=== PATIENT | male | born 1945 | race Caucasian/White ===

== ENCOUNTER → 2019-03-02 07:45 | Outpatient (CLI) | payer MEDICARE, SELFPAY ==
[2019-03-02 15:06] LABS: Thyroid Stimulating Hormone 1.81 uIU/ml (0.358-3.740); Uric Acid 6.4 mg/dL (2.6-7.2)
[2019-03-03 16:08] LABS: Parathyroid Hormone Intact 20 pg/mL (15-65)
== END ==
PROVIDERS: PCP Nurse Practitioner Family; Visit Provider Internal Medicine Nephrology
DX: I10 Essential (primary) hypertension (principal); N18.4 Chronic kidney disease, stage 4 (severe); E55.9 Vitamin D deficiency, unspecified
CPT/HCPCS: 36415; 82652; 83970; 84443; 84550

== ENCOUNTER → 2019-06-14 07:41 | Outpatient (CLI) | payer MEDICARE, SELFPAY ==
[2019-06-14 07:46] LABS: Microscopic, Urine URINE MICROSCOPIC (MICROSCOPIC)
[2019-06-14 14:36] LABS: Appearance,Urine CLEAR (Clear); Bilirubin,Urine Negative (Negative); Blood, Urine Negative (Negative); Color,Urine YELLOW (Yellow); Glucose,Urine (UA) Negative (Negative); Ketones,Urine Negative (Negative); Leukocyte Esterase,Urine Negative (Negative); Nitrate,Urine Negative (Negative); Protein,Urine Negative (Negative); Specific Gravity, Urine <= 1.005 (1.005-1.030); Urobilinogen,Urine 0.2 EU/dl (0.2)
[2019-06-14 15:20] LABS: Albumin Level 3.5 gm/dL (3.4-5.0); Blood Urea Nitrogen 23 mg/dL (7-18); Calcium 8.6 mg/dL (8.5-10.1); Carbon Dioxide 28 mmol/L (21.0-32.0); Chloride 100 mmol/L (98-107); Creatinine,Serum 1.77 mg/dL (0.70-1.30); Estimated Glomerular Filt Rate 38 ml/min (>60); GFR (African American) 46 ML/MIN (>60); Glucose 100 mg/dL (74-106); Phosphorous 3.4 mg/dL (2.4-4.9); Sodium 137 mmol/L (136-145); Thyroid Stimulating Hormone 2.57 uIU/ml (0.358-3.740); Uric Acid 6.4 mg/dL (2.6-7.2)
[2019-06-14 15:43] LABS: Bacteria,Urine Trace /lpf; Squamous Epithelial Cell,Urine Occasional #/hpf (0-5); WBC,Urine Occasional #/hpf (0-3)
[2019-06-16 14:19] LABS: Parathyroid Hormone Intact 40 pg/mL (15-65); Vitamin D 25 Hydroxy 39.5 ng/mL (30.0-100.0)
== END ==
PROVIDERS: PCP Nurse Practitioner Family; Visit Provider Internal Medicine Nephrology
DX: I12.9 Hypertensive chronic kidney disease with stage 1 through stage 4 chronic kidney disease, or unspecified chronic kidney disease (principal); N18.3 Chronic kidney disease, stage 3 (moderate); E55.9 Vitamin D deficiency, unspecified
CPT/HCPCS: 36415; 80069; 81001; 82652; 83970; 84443; 84550

== ENCOUNTER → 2019-08-03 09:02 | Outpatient (CLI) | payer MEDICARE, SELFPAY ==
[2019-08-03 09:18] LABS: Microscopic, Urine URINE MICROSCOPIC (MICROSCOPIC)
[2019-08-03 13:35] LABS: Basophils # 0.1 K/mm3 (0-0.2); Basophils % 0.6 % (0.1-2.0); Eosinophils # 0.7 K/mm3 (0.0-0.4); Eosinophils % 7.5 % (0.1-12.0); Hematocrit 33.5 % (42.0-52.0); Hemoglobin 10.9 g/dL (14.1-18.0); Lymphocytes # 1.7 K/mm3 (0.7-4.5); Lymphocytes % 18.5 % (10-50); Mean Corpuscular HGB Conc 32.6 g/dL (31.8-35.4); Mean Corpuscular Hemoglobin 28.4 pg (27.0-31.2); Mean Corpuscular Volume 87.2 fl (80-94); Mean Platelet Volume 6.9 fl (7.4-10.4); Monocytes # 0.8 K/mm3 (0.1-1.0); Monocytes % 8.5 % (1.7-9.3); Neutrophils # 5.9 K/mm3 (1.8-7.8); Neutrophils % 64.9 % (37.0-80.0); Platelet Count 254 K/mm3 (142-424); Red Blood Count 3.85 M/mm3 (4.60-6.20); Red Cell Distribution Width 13.5 % (11.5-17.5); White Blood Count 9.2 K/mm3 (4.8-10.8)
[2019-08-03 13:43] LABS: Appearance,Urine CLEAR (Clear); Bilirubin,Urine Negative (Negative); Blood, Urine Negative (Negative); Color,Urine YELLOW (Yellow); Creatinine,Urine Random 17 mg/dL (20-320); Glucose,Urine (UA) Negative (Negative); Ketones,Urine Negative (Negative); Leukocyte Esterase,Urine Negative (Negative); Nitrate,Urine Negative (Negative); PH,Urine 6.5 (5.0-8.5); Protein,Urine Negative (Negative); Specific Gravity, Urine <= 1.005 (1.005-1.030); Total Protein,Urine Random 18.5 mg/dL (0.0-11.9); Urobilinogen,Urine 0.2 EU/dl (0.2)
[2019-08-03 14:02] LABS: Squamous Epithelial Cell,Urine Occasional #/hpf (0-5); WBC,Urine Occasional #/hpf (0-3)
[2019-08-03 14:18] LABS: Albumin Level 2.7 gm/dL (3.4-5.0); Blood Urea Nitrogen 37 mg/dL (7-18); Carbon Dioxide 27 mmol/L (21.0-32.0); Chloride 97 mmol/L (98-107); Creatinine,Serum 2.47 mg/dL (0.70-1.30); Estimated Glomerular Filt Rate 26 ml/min (>60); GFR (African American) 31 ML/MIN (>60); Glucose 169 mg/dL (74-106); Phosphorous 3.7 mg/dL (2.4-4.9); Sodium 136 mmol/L (136-145); Thyroid Stimulating Hormone 2.13 uIU/ml (0.358-3.740); Uric Acid 6.4 mg/dL (2.6-7.2)
[2019-08-05 06:13] LABS: Parathyroid Hormone Intact 27 pg/mL (15-65); Vitamin D 25 Hydroxy 42.6 ng/mL (30.0-100.0)
== END ==
PROVIDERS: PCP Nurse Practitioner Family; Visit Provider Internal Medicine Nephrology
DX: N18.3 Chronic kidney disease, stage 3 (moderate); N18.4 Chronic kidney disease, stage 4 (severe); E55.9 Vitamin D deficiency, unspecified; I12.9 Hypertensive chronic kidney disease with stage 1 through stage 4 chronic kidney disease, or unspecified chronic kidney disease; Z79.899 Other long term (current) drug therapy
CPT/HCPCS: 36415; 80069; 81001; 82570; 82652; 83970; 84155; 84443; 84550; 85025

== ENCOUNTER → 2019-09-27 09:32 | Outpatient (CLI) | payer MEDICARE, SELFPAY ==
[2019-09-27 13:39] LABS: Uric Acid 10.2 mg/dL (2.6-7.2)
[2019-09-27 13:44] LABS: Creatinine,Urine Random 36 mg/dL (20-320); Total Protein,Urine Random 61.2 mg/dL (0.0-11.9); Urea Nitrogen,Urine Random 474 (6.0-17.0)
[2019-09-28 09:21] LABS: Vitamin D 25 Hydroxy 58.3 ng/mL (30.0-100.0)
[2019-09-28 19:11] LABS: Parathyroid Hormone Intact 39 pg/mL (15-65)
== END ==
PROVIDERS: PCP Nurse Practitioner Family; Visit Provider Internal Medicine Nephrology
DX: N18.4 Chronic kidney disease, stage 4 (severe) (principal); E55.9 Vitamin D deficiency, unspecified
CPT/HCPCS: 36415; 82570; 82652; 83970; 84155; 84540; 84550

== ENCOUNTER → 2020-06-30 12:39 | Outpatient (CLI) | payer MEDICARE, SELFPAY ==
--- NOTE | 2020-06-30 12:51 | CT_ITS ---
PROCEDURE: CT FOOT RT WO CON CLINICAL HISTORY: RT HEEL ULCER Right heel ulcer pain COMPARISON: No exams were available for comparison TECHNIQUE: Axial images obtained with sagittal and coronal reformats. All CT scans at the facility use one or more dose reduction, viz: automated exposure control, ma/kV adjustment per patient size (including targeted exams where dose is matched to indication, i.e. head), or iterative reconstruction technique. FINDINGS: No bony destructive process. No bony erosion fracture or dislocation. There are scattered hypertrophic changes noted nonspecific. There is a small calcaneal spur is well-circumscribed without erosive change. 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 No obvious abscess. There is mild soft tissue swelling along the medial and posterior aspect of the calcaneus. No soft tissue gas or radiopaque foreign body. IMPRESSION: Mild soft tissue swelling along the medial dorsal aspect of the calcaneus. No bony erosive change, abscess, or radiopaque foreign body Mild degenerative changes Dictated by: Harish Johansen MD 07/01/2020 07:41 Harish Johansen MD in [facility] 07/01/2020 07:41
--- NOTE | 2020-06-30 13:26 | US_ITS ---
APPROVED REPORT Exam Type: Ankle to Brachial Index Associate Account Executive: RT Gisela(R) Indications Claudication: Bilaterally Current Smoker Non healing ulcer right heel x 3-4 months. Risk Factors Hypertension Current Smoker Pressures/Indices Right Indices Left Indices Brachial Brachial 204.00 mmHg Low Thigh 150.00 mmHg 0.74 Low Thigh 142.00 mmHg 0.70 Calf 96.00 mmHg 0.47 Calf 149.00 mmHg 0.73 Ankle(PT) 70.00 mmHg 0.34 Ankle(PT) 169.00 mmHg 0.83 Ankle(DP) 57.00 mmHg 0.28 Ankle(DP) 187.00 mmHg 0.92 Digit 38.00 mmHg 0.19 Digit 114.00 mmHg 0.56 Findings RT DIAMOND=0.3 LT DIAMOND=0.9 RT TBI=0.2 LT TBI=0.6 Normal waveforms Diminished pulses RLE Rt brachial pressure not obtained secondary to dialysis fistula in place. Conclusion Severe arterial disease on the right Acceptable left DIAMOND Electronically signed by : Harish Johansen MD 06/30/2020 16:38:08
== END ==
PROVIDERS: PCP Nurse Practitioner Family; Visit Provider Nurse Practitioner Family
DX: L97.418 Non-pressure chronic ulcer of right heel and midfoot with other specified severity (principal); I70.213 Atherosclerosis of native arteries of extremities with intermittent claudication, bilateral legs
CPT/HCPCS: 73700; 93923